=== PATIENT | female | born 1930 | race Caucasian/White ===

== ENCOUNTER 2020-08-03 07:43 | Observation (INO) | payer OTHER, MEDICAID, SELFPAY ==
[~2020-08-03] VITALS: Ht 152.4 cm; Wt 45.4 kg
[2020-08-03 07:43] VITALS: BP_SYST 114
--- NOTE | 2020-08-03 07:43 | NUR ---
Placed in room 1. Placed on electronic device monitor, blood pressure machine and pulse oximeter. To gown for exam. Side rails up. Report given to EVERETT Hart.
--- NOTE | 2020-08-03 07:45 | NUR ---
Pt came to ER for ALOC, pt AO1, resting in [facility], responds to voice, follows commands. Pt VSS at this time, no complaints at this time.
--- NOTE | 2020-08-03 07:47 | NUR ---
ER at bedside examining patient.
[2020-08-03 08:28] LABS: BILIRUBIN,URINE NEGATIVE (NEGATIVE); BLOOD, URINE NEGATIVE (NEGATIVE); CLARITY/URINE CLEAR (CLEAR); COLOR,URINE YELLOW (YELLOW); GLUCOSE,URINE NEGATIVE (NEGATIVE); KETONES,URINE NEGATIVE (NEGATIVE); LEUKOCYTE ESTERASE ,URINE NEGATIVE (NEGATIVE); NITRITE, URINE NEGATIVE (NEGATIVE); PROTEIN URINE 2+ (NEGATIVE); UROBILINOGEN,URINE 0.2 (0.2-1.0)
[2020-08-03] MEDS ORDERED: NACL 0.9% 1,000 ML IV ONE (08:30)
[2020-08-03 08:31] LABS: BASOPHILS # (AUTO) 0.1 K/uL (0.0-0.2); BASOPHILS % (AUTO) 0.9 % (0.0-2.0); EOSINOPHILS # (AUTO) 0.1 K/uL (0.0-0.4); EOSINOPHILS % (AUTO) 0.9 % (0.0-4.0); HEMATOCRIT 44.7 % (36-48); HEMOGLOBIN 14.8 g/dL (12.0-16.0); LYMPHOCYTES # (AUTO) 1.9 K/uL (1.0-5.5); LYMPHOCYTES % (AUTO) 22.9 % (20.5-51.5); MEAN CORPUSCULAR HEMOGLOBIN 32 pg (27-31); MEAN CORPUSCULAR HGB CONC 33 % (32-36); MEAN CORPUSCULAR VOLUME 96 fL (79.0-98.0); MONOCYTES # (AUTO) 0.3 K/uL (0.0-1.0); MONOCYTES % (AUTO) 3.3 % (1.7-9.3); PLATELET COUNT (AUTO) 180 K/uL (130-430); RED BLOOD CELL COUNT(AUTO) 4.64 MIL/uL (4.2-6.2); RED CELL DISTRIBUTION WIDTH 15.1 % (9.0-15.0); WHITE BLOOD COUNT (AUTO) 8.3 K/uL (4.8-10.8)
[2020-08-03 08:42] LABS: BACTERIA,URINE FEW /HPF (None Seen); MUCUS,URINE 1+ /LPF (None Seen); RBC,URINE 0-3 /HPF (0-3); WBC,URINE 0-3 /HPF (0-3)
[2020-08-03 08:43] LABS: URINE AMORPHOUS URATE 2+ /HPF (None Seen)
[2020-08-03 08:48] LABS: ANION GAP 13 (5-15); CALCIUM 8.5 mg/dL (8.4-11.0); CHLORIDE 106 mmol/L (98-107); CREATININE 1.41 mg/dL (0.55-1.30); GLUCOSE 120 mg/dL (70-99); POTASSIUM 4.6 mmol/L (3.5-5.1); SODIUM SERUM 140 mmol/L (136-145); UREA NITROGEN, BLOOD 27 mg/dL (8-21)
[2020-08-03 08:52] LABS: ALANINE AMINOTRANSFERASE 40 U/L (12-78); ALBUMIN 3.1 g/dL (3.4-4.8); ASPARTATE AMINOTRANSFERASE 102 U/L (10-37); LIPASE 164 U/L (73-393); TOTAL BILIRUBIN 0.5 mg/dL (0.0-1.0)
--- NOTE | 2020-08-03 09:00 | NUR ---
Pt asleep in [facility] at this time VSS
[2020-08-03] MEDS ORDERED: BACL10TA PO (10:17)
[2020-08-03] MEDS ORDERED: ZINC220T4 PO (10:17)
[2020-08-03] MEDS ORDERED: MULT-1117 PO (10:17)
[2020-08-03] MEDS ORDERED: ACET-73 PO (10:17)
[2020-08-03] MEDS ORDERED: PHEDM120 PO (10:17)
[2020-08-03] MEDS ORDERED: ASCO500T20 PO (10:17)
[2020-08-03] MEDS ORDERED: ATRMDI INH (10:17)
[2020-08-03] MEDS ORDERED: ESCI10TA PO (10:17)
--- NOTE | 2020-08-03 11:00 | NUR ---
Pt resting in [place], VSS, no distress noted.
[2020-08-03] MEDS: NACL 0.9% 1,000 ML IV SCH (12:35)
--- NOTE | 2020-08-03 14:25 | NUR ---
Patient moved to room 5.
--- NOTE | 2020-08-03 16:25 | NUR ---
Unable to obtain room assignment at this time. blocker and cutter contact lens Zeny is at lunch.
--- NOTE | 2020-08-03 17:36 | NUR ---
Patient will be admitted to care of [facility]. Admitted to Tele unit. Will go to room 121. Belongings list completed. Complete and up to date summary report printed. SBAR report to be given at bedside with opportunity for questions.
--- NOTE | 2020-08-03 18:04 | NUR ---
Admission Note Received patient from ER with diagnosis of altered mental status. Initial Plan of Care discussed-patient. Oriented to room, call light, pain management and safety. Patient is confused.
[2020-08-03 18:10] VITALS: BP_SYST 157
--- NOTE | 2020-08-03 19:27 | NUR ---
closing note provided sbar to night RN, patient in bed, respirations even non labored, bed in low and locked position, call light within reach endorsed care to night RN
--- NOTE | 2020-08-03 19:44 | NUR ---
PAGED I PAGED CALLED DR. YANG ON HIS CELL PHONE NUMBER LEFT A MESSAGE
--- NOTE | 2020-08-03 19:46 | NUR ---
DR. YANG CALLED BACK
[2020-08-03] MEDS ORDERED: ACETAMINOPHEN 500 MG TABLET PO PRN (20:00)
[2020-08-03] MEDS ORDERED: BACLOFEN 10 MG TABLET PO PRN (20:00)
[2020-08-03] MEDS ORDERED: PROMETHAZINE-DM 6.25 MG-15 MG/5 ML UDC PO PRN (20:00)
--- NOTE | 2020-08-03 20:00 | NUR ---
DOWNTIME SCHEDULED DOWNTIME DURING THIS SHIFT FROM [phone], PLEASE SEE PATIENT FOLDER FOR PAPER CHARTING AND DOCUMENTATION.
[2020-08-03] MEDS ORDERED: LEVOFLOXACIN 500 MG/D5W 100 ML IV SCH (21:00)
[2020-08-03] MEDS ORDERED: IPRATROPIUM BROMIDE 17 mCg/ACTUATION, 12.9 GM AER.W.ADAP INH SCH (21:00)
[2020-08-03] MEDS ORDERED: LEVOFLOXACIN 500 MG/D5W 100 ML IV ONE (22:20)
[2020-08-03] MEDS ORDERED: DIPHENHYDRAMINE INJ 50 MG/ML VIAL ONE (23:46)
[2020-08-04] MEDS: NACL 0.9% 1,000 ML IV SCH ×2 (01:05→15:10)
[2020-08-04] MEDS ORDERED: DIPHENHYDRAMINE INJ 50 MG/ML VIAL IVP SCH (06:15)
[2020-08-04] MEDS ORDERED: IPRATROPIUM BROM 0.5 MG/2.5 ML VIAL.NEB (ATROVENT) INH SCH (07:00)
--- NOTE | 2020-08-04 07:10 | NUR ---
CLOSING NOTE REPORT GIVEN TO [facility] NURSEPHYLLIS. PATIENT IN BED, SLEEPING. NO S/S OF ACUTE DISTRESS NOTED. BREATHING EVEN AND UNLABORED. HOB RAISED, NASAL CANULA ATTACHED PROPERLY, ON 4L OF OXYGEN. IVF INFUSING WELL. IV SITE PATENT, NO SIGNS OF INFILTRATION OR INFECTION NOTED. ALL NEEDS MET. BED ALARM ON. ISOLATION PRECAUTIONS MAINTAINED THROUGHOUT SHIFT.
[2020-08-04] MEDS ORDERED: DIPHENHYDRAMINE INJ 50 MG/ML VIAL IVP PRN (07:45)
--- NOTE | 2020-08-04 07:56 | NUR ---
Nutrition Update Deshaun Scale 14 noted. Pt admitted for Altered Mental Status Diet: Mechanical soft 2gm Na BMI: 19.5 kg/m2 RD to follow per nutrition care standards.
[2020-08-04 08:00] VITALS: BP_SYST 113
--- NOTE | 2020-08-04 08:00 | NUR ---
Note Pt assisted in sitting up in bed to eat her breakfast. No SOB/resp distress or pain/discomfort noted at this time. Pt has O2 on at 4L/nc. Tele unit attached and intact at this time. IV in left forearm intact and patent infusing IVF's well. No needs noted at this time. Call light within reach.
[2020-08-04 08:48] LABS: BASOPHILS % (AUTO) 0.4 % (0.0-2.0); EOSINOPHILS # (AUTO) 0.1 K/uL (0.0-0.4); EOSINOPHILS % (AUTO) 1.5 % (0.0-4.0); HEMATOCRIT 37.5 % (36-48); HEMOGLOBIN 12.5 g/dL (12.0-16.0); LYMPHOCYTES # (AUTO) 1.6 K/uL (1.0-5.5); LYMPHOCYTES % (AUTO) 28.4 % (20.5-51.5); MEAN CORPUSCULAR HEMOGLOBIN 32 pg (27-31); MEAN CORPUSCULAR HGB CONC 33 % (32-36); MEAN CORPUSCULAR VOLUME 96 fL (79.0-98.0); MONOCYTES # (AUTO) 0.5 K/uL (0.0-1.0); MONOCYTES % (AUTO) 8.9 % (1.7-9.3); NEUTROPHILS # (AUTO) 3.5 K/uL (1.8-7.7); NEUTROPHILS % (AUTO) 60.8 % (40.0-70.0); PLATELET COUNT (AUTO) 140 K/uL (130-430); RED BLOOD CELL COUNT(AUTO) 3.89 MIL/uL (4.2-6.2); RED CELL DISTRIBUTION WIDTH 14.9 % (9.0-15.0); WHITE BLOOD COUNT (AUTO) 5.7 K/uL (4.8-10.8)
[2020-08-04] MEDS ORDERED: CITALOPRAM HYDROBROMIDE 20 MG TABLET PO SCH (09:00)
[2020-08-04] MEDS ORDERED: AZITHROMYCIN 500 MG in NS 250 ML IV SCH (09:00)
[2020-08-04] MEDS ORDERED: MULTIVITAMINS TAB 1 TABLET PO SCH (09:00)
[2020-08-04] MEDS ORDERED: ASCORBIC ACID 500 MG TABLET PO SCH (09:00)
[2020-08-04 09:58] LABS: ANION GAP 9 (5-15); CALCIUM 7.8 mg/dL (8.4-11.0); CHLORIDE 110 mmol/L (98-107); CREATININE 0.99 mg/dL (0.55-1.30); GLUCOSE 76 mg/dL (70-99); POTASSIUM 4.3 mmol/L (3.5-5.1); SODIUM SERUM 138 mmol/L (136-145); TOTAL BILIRUBIN 0.3 mg/dL (0.0-1.0); UREA NITROGEN, BLOOD 20 mg/dL (8-21)
[2020-08-04 09:59] LABS: ALANINE AMINOTRANSFERASE 28 U/L (12-78); ALBUMIN 2.5 g/dL (3.4-4.8); ASPARTATE AMINOTRANSFERASE 49 U/L (10-37)
[2020-08-04 10:00] LABS: CHOLESTEROL 99 mg/dL (<200); HDL CHOLESTEROL 28 mg/dL (>55); LDL CHOLESTEROL 64 mg/dL (<100); PHOSPHORUS 2.8 mg/dL (2.7-4.5); THYROID STIMULATING HORMONE 1.85 uIu/mL (0.34-4.82); TRIGLYCERIDES 73 mg/dL (30-150)
--- NOTE | 2020-08-04 10:40 | NUR ---
Note Dr Garcia on the floor assessing pt and writing orders. Pt resting in bed. Call light within reach.
--- NOTE | 2020-08-04 11:30 | NUR ---
[phone] S/W [place] OFFICE
[2020-08-04 12:00] VITALS: BP_SYST 125
--- NOTE | 2020-08-04 12:30 | NUR ---
Note wildlife biology technician at bedside doing at 2D-echo.
--- NOTE | 2020-08-04 13:55 | NUR ---
Note Spoke to pt's daughter and update given on pt's status at this time. Questions/concerns were answered at this time. No needs noted at this time. Call light within reach.
[2020-08-04 16:00] VITALS: BP_SYST 151
--- NOTE | 2020-08-04 16:45 | NUR ---
Note Pt resting in bed - denies any needs at this time. IVF's infusing well through left hand IV site. Call light within reach.
--- NOTE | 2020-08-04 18:30 | NUR ---
Note Pt sitting up in bed eating her dinner independently - pt states she eats slowly and and her own pace. No SOB/resp distress or pain/discomfort noted at this time. Tele unit attached and intact at this time. Pt was checked on q1' and PRN all shift. Pt was maintained with safety and isolation precautions all shift. O2 on at 4L/nc. IV in left forearm intact and patent infusing IVF's well. Pt denies any needs at this time. Call light within reach. Bed in low position and bed alarm on all shift.
--- NOTE | 2020-08-04 19:30 | NUR ---
PM ASSESSMENT REPORT RECEIVED FROM PHYLLIS FLOYD. PT RECEIVED IN BED WITH EYES OPEN, RESPONDING TO VERBAL STIMULATION. PT IS [place] SPEAKING. VSS, NO S/S OF ACUTE DISTRESS NOTED. LFA 18G PATENT AND INTACT INFUSING IVF. PT DENIES ANY PAIN OR DISCOMFORT AT THIS TIME. HOB ELEVATED, BED IN LOWEST POSITION, CALL LIGHT IN REACH. WILL CONTINUE TO MONITOR PT.
[2020-08-04 20:00] VITALS: BP_SYST 150
[2020-08-04] MEDS ORDERED: LEVOFLOXACIN 250 MG/D5W 50 ML IV SCH (21:00)
--- NOTE | 2020-08-04 21:22 | NUR ---
TAE MANZANO MUSIC COPYIST CALLED TO INFORM ME THAT PT IS SEEN ASYSTOLE ON MONITOR. UPON ARRIVAL PT IS IN BED, UNRESPONSIVE TO VERBAL AND TACTILE STIMULATION AND STERNAL RUB. NO PULSES ARE FELT. TAE MANZANO CALLED. PLEASE REFER TO TAE MANZANO SHEET FOR DETAILS. Addendum: 08/04/20 at 2343 by Lachelle Carrera RN ROSC ACHIEVED AT 2140.
--- NOTE | 2020-08-04 22:03 | NUR ---
TAE MANZANO PT S/P FULL ARREST AND BECAME BRADYCARDIC AND DOWN TO ASYSTOLE. CPR RESTARTED. DR. GARZA AT BEDSIDE AND PRONOUNCED PT WITH TIME OF AT 2210. PLEASE REFER TO CODE BLUE SHEET FOR DETAILS.
[2020-08-04] MEDS ORDERED: EPINEPHrine JECT 0.1 MG/ML SYR IVP ONE (22:09)
[2020-08-04] MEDS ORDERED: MAGNESIUM SULFATE 1 GM/2 ML VIAL IV ONE (22:09)
[2020-08-04] MEDS ORDERED: SODIUM BICARBONATE 8.4% JECT 50 MEQ/50 ML SYRINGE IVP ONE (22:09)
[2020-08-04] MEDS ORDERED: NOREPINEPHRINE 4 MG/4 ML VIAL IV ONE (22:17)
--- NOTE | 2020-08-04 22:22 | NUR ---
[facility] NOTIFIED OF PT EXPIRATION. PER [facility] THEY WILL NOT CONTINUE WITH THE CASE.
--- NOTE | 2020-08-04 22:31 | NUR ---
CORONERS PT NOT A CORONERS CASE. [facility] WITH [facility].
--- NOTE | 2020-08-04 23:08 | NUR ---
DR. CELIA DELGADO MADE AWARE OF PT EXPIRATION.
--- NOTE | 2020-08-04 23:45 | NUR ---
FAMILY FAMILY IS ON UNIT. MORTUARY INFORMATION OBTAINED. ALL QUESTIONS ANSWERED.
--- NOTE | 2020-08-04 23:49 | NUR ---
[facility] SPOKE WITH NAVDEEP OF [facility]. ETA FOR PT CHILD DEVELOPMENT DIRECTOR IS 90 MINS. WILL AWAIT CHILD DEVELOPMENT DIRECTOR.
--- NOTE | 2020-08-05 | NUR ---
POST MORTEM CARE PT PLACED IN BODY BAG AND POST MORTEM CARE PROVIDED.
--- NOTE | 2020-08-05 01:56 | NUR ---
[facility] MORTUARY AT BEDSIDE TO CUSTOM MOTORCYCLE PAINTER PT.
== END 2020-08-04 22:10 | disposition expired ==
LOC: SED 07:43 → STU 11:52
PROVIDERS: ADMIT Internal Medicine; ATTEND Internal Medicine
DX: R40.4 Transient alteration of awareness (principal); Z20.828 Contact with and (suspected) exposure to other viral communicable diseases; R42 Dizziness and giddiness; R10.9 Unspecified abdominal pain; R11.2 Nausea with vomiting, unspecified; J43.9 Emphysema, unspecified; I10 Essential (primary) hypertension; I25.10 Atherosclerotic heart disease of native coronary artery without angina pectoris; I49.9 Cardiac arrhythmia, unspecified; M81.0 Age-related osteoporosis without current pathological fracture; F17.210 Nicotine dependence, cigarettes, uncomplicated; Z88.0 Allergy status to penicillin; Z79.899 Other long term (current) drug therapy; Z95.0 Presence of cardiac pacemaker
CPT/HCPCS: 36415 ×2; 70450; 71045 ×2; 74176; 80053 ×2; 80061; 81000; 82550; 83036; 83690; 83735; 83880; 84100; 84443; 84484 ×2; 85025 ×2; 85730; 87081; 87426; 92950; 93306; 93880; 94002; 96361 ×2; 96365; 96367; 99285; G0378; J0171; J0456; J1200 ×2; J1956; J3475; J7030 ×2; J7050; U0003; 96360